=== PATIENT | female | born 1965 | race Two or more races ===

== ENCOUNTER 2018-09-28 19:53 | Emergency (ER) | payer MEDICAID ==
[~2018-09-28] VITALS: Ht 152.4 cm; Wt 54.0 kg
[~2018-09-28 19:53] MED LIST: AMITR PO; CARI-277; CYAN100042 OR; LORA-205 OR; THYR15TA; TRAM50TA2 OR
[2018-09-28 21:57] LABS: Basophils # (auto) 0.1 uL; Basophils % (auto) 0.7 % (0.0-2.0); Eosinophils # (auto) 0.1 uL; Eosinophils % (auto) 1.3 % (0.0-7.0); Hematocrit 41.3 % (36.0-46.0); Hemoglobin 14.2 g/dL (12.2-16.2); Lymphocytes # (auto) 3.4 uL; Lymphocytes % (auto) 34.7 % (10.0-50.0); Mean Corpuscular Hemoglobin 33.1 pg (28.0-32.0); Mean Corpuscular Hgb Conc. 34.4 g/dL (32.0-36.0); Mean Corpuscular Volume 96.4 fL (80.0-100.0); Monocytes # (auto) 0.5 uL; Monocytes % (auto) 5.4 % (0.0-12.0); Neutrophils # (auto) 5.7 uL; Neutrophils % (auto) 57.9 % (37.0-80.0); Nucleated Red Blood Cells % 0.1 %; Platelet Count (auto) 358 10^3/uL (140-450); Red Blood Cells 4.28 10^6/uL (4.0-5.20); Red Cell Distribution Width 15.1 % (11.8-14.3); White Blood Cell 9.9 10^3/uL (4.4-10.8)
[2018-09-28 22:06] LABS: Albumin 3.6 g/dL (3.4-5.0); Calcium 8.9 mg/dL (8.5-10.1); Potassium 3.9 mmol/L (3.5-5.1)
[2018-09-28 22:12] LABS: Bilirubin, Total 0.2 mg/dL (0.2-1.0)
[2018-09-29] MEDS ORDERED: HYDROcodone-ACET 10/325MG TAB PO ONE (00:15)
[2018-09-29 00:59] VITALS: BP 118/77
== END 2018-09-29 01:15 | disposition home or self-care (01) ==
LOC: EDBD 19:53 → ER 19:53
DX: M54.5 Low back pain (principal); R10.84 Generalized abdominal pain; R11.2 Nausea with vomiting, unspecified; R19.7 Diarrhea, unspecified; T84.098A Other mechanical complication of other internal joint prosthesis, initial encounter; E07.9 Disorder of thyroid, unspecified; F17.210 Nicotine dependence, cigarettes, uncomplicated; F15.90 Other stimulant use, unspecified, uncomplicated; Z88.1 Allergy status to other antibiotic agents; Z79.899 Other long term (current) drug therapy; Y83.8 Other surgical procedures as the cause of abnormal reaction of the patient, or of later complication, without mention of misadventure at the time of the procedure; Y92.89 Other specified places as the place of occurrence of the external cause
CPT/HCPCS: 36415; 74176; 80053; 82150; 83690; 85025